=== PATIENT | female | born 1940 | race Caucasian/White ===

== ENCOUNTER 2016-10-08 08:05 | Day surgery (SDC) | payer BC ==
[2016-10-07 17:34] VITALS: BMI 27.1
[~2016-10-08] VITALS: Ht 154.9 cm; Wt 61.5 kg
[~2016-10-08 08:05] MED LIST: ASPI-664 PO; DOCU-159 PO; FAMO40TA52 PO; GABA300C16 PO; ISOS60TA PO; LOSA100T7 PO; METF500T4 PO; TERB250T46 PO
[2016-10-08] MEDS ORDERED: CYCLOPENTOLATE/PHENYLEPH 2 ML OPH OPER SCH (08:30)
[2016-10-08] MEDS ORDERED: CIPROFLOXACIN 0.3% 2.5 ML OPH OPER SCH (08:30)
[2016-10-08] MEDS ORDERED: TROPICAMIDE 1% 2 ML OPH OPER SCH (08:30)
[2016-10-08] MEDS ORDERED: ATOR20TA38 PO (09:19)
[2016-10-08] MEDS ORDERED: FER325 PO (09:19)
[2016-10-08] MEDS ORDERED: CEFAZOLIN 1 GM INJ ONE (09:57)
[2016-10-08] MEDS ORDERED: LIDOCAINE 4% (MPF) 5 ML INJ ONE (09:57)
[2016-10-08] MEDS ORDERED: DICLOFENAC 0.1% 2.5 ML OPH ONE (09:57)
[2016-10-08] MEDS ORDERED: HYALURONATE/CHONDROITIN 1ML OPH INJ ONE (09:58)
[2016-10-08] MEDS ORDERED: CARBACHOL 0.01% 1.5 ML OPH INJ ONE (09:58)
[2016-10-08] MEDS ORDERED: GENTAMICIN 80 MG INJ ONE (09:58)
[2016-10-08] MEDS ORDERED: DEXAMETHASONE 4 MG/ML 1 ML INJ ONE (09:58)
[2016-10-08] MEDS ORDERED: EPINEPHrine 1 MG INJ ONE (09:59)
[2016-10-08 10:00] VITALS: BP 136/63; PULSE 86; RESP 16
[2016-10-08] MEDS ORDERED: DICLOFENAC 0.1% 2.5 ML OPH OPER SCH (10:00)
[2016-10-08 10:12] VITALS: Ht 154.9 cm; Wt 61.5 kg
[2016-10-08] MEDS ORDERED: DEXAMETHASONE 4 MG/ML 1 ML INJ INJ ONE (10:15)
[2016-10-08] MEDS ORDERED: HYALURONATE/CHONDROITIN 1ML OPH INJ IO ONE (10:15)
[2016-10-08] MEDS ORDERED: CEFAZOLIN 1 GM INJ INJ ONE (10:15)
[2016-10-08] MEDS ORDERED: CARBACHOL 0.01% 1.5 ML OPH INJ IO ONE (10:15)
[2016-10-08] MEDS ORDERED: PROPOFOL 20 ML ONE (10:26)
[2016-10-08] MEDS ORDERED: DIPHENHYDRAMINE 50 MG INJ IV PRN (10:30)
[2016-10-08] MEDS ORDERED: MIDAZOLAM 1 MG/ML 2 ML INJ IV PRN (10:30)
[2016-10-08] MEDS ORDERED: METOCLOPRAMIDE 10 MG INJ IV PRN (10:30)
[2016-10-08] MEDS ORDERED: MEPERIDINE 25 MG INJ IV PRN (10:30)
[2016-10-08] MEDS ORDERED: ONDANSETRON 4 MG INJ IV PRN (10:30)
[2016-10-08] MEDS ORDERED: FENTAnyl 50 MCG/ML VIAL IV PRN ×2 (10:30)
[2016-10-08 11:11] VITALS: BP 147/74; PULSE 77; RESP 12
[2016-10-08 11:16] VITALS: BP 151/74; PULSE 77; RESP 16
--- NOTE | 2016-10-08 11:32 | OPR ---
DATE OF OPERATION: 10/08/2016 PREOPERATIVE DIAGNOSIS: Cataract, left eye. POSTOPERATIVE DIAGNOSIS: Cataract, left eye. OPERATION PERFORMED: Cataract extraction with lens implant, left eye. SURGEON: Shannan More MD ANESTHESIA: Dr. Retana OPERATION: Phacoemulsification with posterior chamber intraocular lens implant, left eye. PROCEDURE: The patient was brought to the operating room and placed on the table with an IV in plac e and the patient attached to an quality assurance monitor final. Oxygen was given via face mask. After some intravenous sedation was administered, local anesthesia was given using Xylocaine 2% with epinephrine, mixed with Marcaine 0.5%. This was given in a lid block and retrobulbar injection. The patient was then prepped and draped in the usual sterile manner. A wire lid speculum was inserted between the lids of the left eye. A Superblade was used to enter th e anterior chamber at the corneoscleral limbus at the 10:30 o'clock position. A separate incision wa s made using a 3.0-mm keratome which entered the corneoscleral junction at the 12 o'clock position. Through this 3-mm opening, an irrigating cystitome was introduced into the anterior chamber. The narciso mber was filled with Viscoat and an anterior capsulotomy was performed. Balanced salt solution was t hen used for hydrodissection of the lens. A phacoemulsification handpiece was then brought into the field and introduced into the anterior chamber. The lens nucleus was emulsified using a deep groove and cracking the nucleus into quadrants. Following this, each quadrant was aspirated and emulsified at the pupillary margin. After this was completed, the irrigation/aspiration handpiece was brought to the field, introduced i nto the posterior chamber, and the lens cortical material was removed. When this was completed, eliseo tional Viscoat was injected into the anterior and posterior chambers. The 3-mm opening had its internal lips enlarged, and then the posterior chamber intraocular lens shin suring 22.0 diopters ([employer] Model [id number])was then injected into the posterior chamber using the lens injector system. After the leading haptic was introduced into the capsular ba g and the lens optic was present in the center of the eye, the injector was removed and the trailing haptic was grasped with non-toothed forceps and introduced into the capsular fold superiorly. A Sin skey hook was then used to rotate the intraocular lens so that the lips were oriented in the horizon shadi meridian. One 10-0 nylon suture was placed across the wound. Prior to tying, the irrigation/aspiration handpiece was reintroduced into the anterior chamber to re move the Viscoat. Miochol was instilled to constrict the pupil, and then the 10-0 nylon suture was t ied. The ends were cut short and then the knot was buried. Then, 0.5 mL of dexamethasone and 0.5 mL of Ancef were injected into the sub-Tenon space in the infe rior fornix. Ciloxan drops were then placed on the surface of the eye. The speculum was removed and a patch was applied. The patient then left the operating room in satisfactory condition. Dictated By: SHANNAN DASH/DANA Conf#: [id number] DID#: [id number]
[2016-10-08 12:26] VITALS: BP 165/93; PULSE 77; RESP 16
[2016-10-08 12:29] VITALS: BP 158/70; PULSE 74; RESP 18
== END 2016-10-08 13:28 | disposition home or self-care (01) ==
LOC: SDS 08:05
PROVIDERS: ATTEND Ophthalmology
DX: H26.9 Unspecified cataract (principal); I10 Essential (primary) hypertension; E11.9 Type 2 diabetes mellitus without complications
CPT/HCPCS: 66984; 82962; J0171; J0690; J1100; J1580; V2632; Z7512; Z7610